=== PATIENT | male | born 1970 | race Caucasian/White ===

== ENCOUNTER 2018-07-19 09:42 | Inpatient (IN) | payer MEDICAID, MEDICARE ==
[~2018-07-19] VITALS: Ht 172.7 cm; Wt 107.5 kg
[2018-07-19] MEDS ORDERED: SODIUM CHLORIDE 0.9% 1,000 ML IV ONE (09:46)
[2018-07-19] MEDS ORDERED: NALOXONE HCL 1 MG/ML 2ML VIAL IV STA (09:46)
[2018-07-19] MEDS ORDERED: NALOXONE HCL 1 MG/ML 2ML VIAL ONE (09:56)
[2018-07-19] MEDS ORDERED: DEXTROSE 50% WATER 50ML SYRINGE IV ONE ×2 (09:57→10:00)
[2018-07-19 10:08] LABS: HEMATOCRIT. 27.3 % (42.0-52.0); HEMOGLOBIN. 9.2 g/dL (14.0-18.0); MEAN CORPUSCULAR HEMOGLOBIN 29.7 pg (28.0-32.0); MEAN CORPUSCULAR VOLUME 88.1 fL (80.0-94.0); MEAN PLATELET VOLUME 8.3 fl (7.4-10.4); PLATELET 283 x1000/uL (130-400); RED CELL DISTRIBUTION WIDTH 16.2 % (11.6-14.6)
[2018-07-19 10:14] LABS: PROTHROMBIN TIME 10.5 sec (9.1-11.1)
[2018-07-19 10:15] LABS: CHLORIDE 113 mEq/L (98-107)
[2018-07-19 10:22] LABS: ETHANOL BLOOD < 10 mg/dL
[2018-07-19 11:18] LABS: PLATELET ESTIMATE NORMAL
[2018-07-19] MEDS ORDERED: CEFTRIAXONE 1 G PREMIX 50 ML IV ONE (12:30)
[2018-07-19] MEDS ORDERED: AZITHROMYCIN 500 MG in DEXT 5% WATER 250 ML IV SCH (12:30)
[2018-07-19 13:05] LABS: CLARITY URINE CLEAR (CLEAR); COLOR URINE YELLOW (YELLOW); KETONES URINE NEGATIVE (NEGATIVE); LEUKOCYTE ESTERASE URINE NEGATIVE (NEGATIVE); NITRITE URINE NEGATIVE (NEGATIVE); OCCULT BLOOD URINE TRACE (NEGATIVE); PH URINE 6.5 (4.5-8.0); PROTEIN URINE 3+ (NEGATIVE); UROBILINOGEN URINE 0.2 E.U./dL (0.2-1.0)
[2018-07-19 13:20] LABS: *AMPHETAMINES SCREEN URINE PRESUMTIVE POSITIVE (NEGATIVE)
[2018-07-19 13:23] LABS: *BARBITURATES SCREEN URINE NEGATIVE (NEGATIVE); *BENZODIAZEPINES SCREEN URINE PRESUMTIVE POSITIVE (NEGATIVE); *COCAINE SCREEN URINE NEGATIVE (NEGATIVE); CANNABINOID URINE SCREEN NEGATIVE (NEGATIVE); METHADONE URINE SCREEN NEGATIVE (NEGATIVE); OPIATES URINE SCREEN NEGATIVE (NEGATIVE); PHENCYCLIDINE URINE SCREEN NEGATIVE (NEGATIVE)
[2018-07-19 13:32] LABS: BG BASE EXCESS -4.8 mmol/L (-2.0-2.0); BG CARBOXYHEMOGLOBIN 0.3 % (0.5-1.5); BG DEOXYHEMOGLOBIN 0.7 % (0.0-5.0); BG FRACTION INSPIRED OXYGEN 100; BG HCO3 ACT 20.1 mmol/L (22.0-26.0); BG METHEMOGLOBIN 0.2 % (0.0-1.5); BG OXYGEN SATURATION 99.3 % (92.0-98.5); BG OXYHEMOGLOBIN 98.8 % (94.0-97.0); BG PCO2 36.6 mmHg (35.0-45.0); BG PEEP (cmH2O) 0 cmH2O; BG PH 7.358 (7.350-7.450); BG PO2 384.8 mmHg (75.0-100.0); BG SAMPLE SITE RIGHT RADIAL; BG TIDAL VOLUME(mL) 600 mL; BG TOTAL HEMOGLOBIN 10.6 g/dL (12.0-18.0); BG VENT MODE VENT - A/C; BG VENT RATE 16 set
[2018-07-19] MEDS: PROPOFOL 10MG/ML 100ML 100 ML IV SCH ×2 (13:50→16:48)
[2018-07-19] MEDS ORDERED: SUCCINYLCHOLINE CHLORIDE 200MG/10ML IV ONE (13:55)
[2018-07-19] MEDS ORDERED: IPRATROPIUM/ALBUTEROL 0.5-3(2.5)MG/3ML NEB HHN PRN (14:30)
[2018-07-19] MEDS ORDERED: PIPERACILLIN/TAZ 3.375G PREMIX 50 ML IV SCH (14:30)
[2018-07-19] MEDS ORDERED: ONDANSETRON HCL 4MG/2ML INJ IV PRN ×2 (15:15)
[2018-07-19] MEDS ORDERED: IPRATROPIUM/ALBUTEROL 0.5-3(2.5)MG/3ML NEB INH SCH (15:15)
[2018-07-19] MEDS ORDERED: HYDROCODONE/ACETAMINOPHEN 5/325MG TABLET PO PRN (15:15)
[2018-07-19] MEDS ORDERED: NA PHOS,M-B/NA PHOS,DI-BA ENEMA 118ML PR PRN (15:15)
[2018-07-19] MEDS ORDERED: IPRATROPIUM/ALBUTEROL 0.5-3(2.5)MG/3ML NEB INH PRN (15:15)
[2018-07-19] MEDS ORDERED: FAMOTIDINE 20MG/2ML VIAL IV SCH (15:15)
[2018-07-19] MEDS ORDERED: CEFEPIME 1,000 MG in DEXTROSE 5% WATER 50 ML IV SCH (15:15)
[2018-07-19 16:08] VITALS: BP 170/92
[2018-07-19] MEDS: SODIUM CHLORIDE 0.45% 1,000 ML IV SCH (16:46)
[2018-07-19] MEDS: IPRATROPIUM/ALBUTEROL 0.5-3(2.5)MG/3ML NEB HHN SCH (17:04)
[2018-07-19] MEDS ORDERED: MVI, ADULT NO.1 10 ML, FOLIC ACID 1 MG, THIAMINE HCL 100 MG in SODIUM CHLORIDE 0.9% 1,0... IV SCH ×4 (18:00)
[2018-07-19] MEDS: PIPERACILLIN/TAZ 3.375G PREMIX 50 ML IV SCH (18:54)
[2018-07-19 19:00] VITALS: BP 153/86
[2018-07-19 20:00] VITALS: BP 147/79
[2018-07-19] MEDS ORDERED: VANCOMYCIN 2,000 MG in DEXT 5% WATER 500 ML IV SCH (20:00)
[2018-07-19 21:00] VITALS: BP 143/78
[2018-07-19] MEDS: FUROSEMIDE 40MG/4ML VIAL IV SCH (21:06)
[2018-07-19] MEDS: ENOXAPARIN 30MG/0.3ML SYR SUBCUT SCH (21:07)
[2018-07-19 22:00] VITALS: BP 144/80
[2018-07-19 22:02] LABS: VITAMIN B12 SERUM 451 pg/mL (211-911)
[2018-07-19] MEDS: SODIUM CHLORIDE 0.9% INJ 3ML FLUSH IVF SCH (22:50)
[2018-07-19 23:00] VITALS: BP 145/83
[2018-07-19] MEDS: PROPOFOL 10MG/ML 100ML 100 ML IV PRN (23:01)
[2018-07-19 23:47] LABS: CREATINE KINASE 113 IU/L (39-308); CREATINE KINASE MB FRACTION 5.6 ng/mL (0.5-3.6)
[2018-07-20] VITALS (81 sets, daily range): BP systolic 125–188; BP diastolic 43–104
[2018-07-20] MEDS: PIPERACILLIN/TAZ 3.375G PREMIX 50 ML IV SCH ×5 (00:30→23:39)
[2018-07-20] MEDS: IPRATROPIUM/ALBUTEROL 0.5-3(2.5)MG/3ML NEB HHN SCH ×6 (00:44→20:27)
[2018-07-20] MEDS: PROPOFOL 10MG/ML 100ML 100 ML IV PRN ×4 (04:53→23:39)
[2018-07-20] MEDS: SODIUM CHLORIDE 0.45% 1,000 ML IV SCH ×2 (04:54→21:56)
[2018-07-20] MEDS: SODIUM CHLORIDE 0.9% INJ 3ML FLUSH IVF SCH ×3 (06:00→21:57)
[2018-07-20 06:27] LABS: HEMATOCRIT. 29.9 % (42.0-52.0); HEMOGLOBIN. 9.8 g/dL (14.0-18.0); MEAN CORPUSCULAR VOLUME 91.9 fL (80.0-94.0); MEAN PLATELET VOLUME 9.2 fl (7.4-10.4); PLATELET 230 x1000/uL (130-400); RED BLOOD CELL COUNT 3.25 mill/uL (4.7-6.1); RED CELL DISTRIBUTION WIDTH 16.2 % (11.6-14.6)
[2018-07-20 06:53] LABS: CHLORIDE 112 mEq/L (98-107)
[2018-07-20 07:13] LABS: CREATINE KINASE 123 IU/L (39-308); CREATINE KINASE MB FRACTION 3.7 ng/mL (0.5-3.6); HDL CHOLESTEROL 72 mg/dL (40-59); LDL CHOLESTEROL 54 mg/dL (5-100)
[2018-07-20 07:54] LABS: PLATELET ESTIMATE NORMAL
[2018-07-20 08:02] LABS: BG BASE EXCESS -4.5 mmol/L (-2.0-2.0); BG CARBOXYHEMOGLOBIN 0.3 % (0.5-1.5); BG DEOXYHEMOGLOBIN 6.6 % (0.0-5.0); BG FRACTION INSPIRED OXYGEN 40; BG HCO3 ACT 20.3 mmol/L (22.0-26.0); BG METHEMOGLOBIN 0.4 % (0.0-1.5); BG OXYGEN SATURATION 93.4 % (92.0-98.5); BG OXYHEMOGLOBIN 92.7 % (94.0-97.0); BG PCO2 35.9 mmHg (35.0-45.0); BG PO2 67.5 mmHg (75.0-100.0); BG SAMPLE SITE RIGHT RADIAL; BG TIDAL VOLUME(mL) 600 mL; BG TOTAL HEMOGLOBIN 9.8 g/dL (12.0-18.0); BG VENT MODE VENT - A/C; BG VENT RATE 16 set
[2018-07-20] MEDS: FUROSEMIDE 40MG/4ML VIAL IV SCH (09:35)
[2018-07-20] MEDS: POTASSIUM CHLORIDE 20MEQ TABLET SR PO PRN (09:35)
[2018-07-20] MEDS: ENOXAPARIN 30MG/0.3ML SYR SUBCUT SCH ×2 (09:36→21:57)
[2018-07-20] MEDS: PANTOPRAZOLE SODIUM 40 MG/VIAL IV SCH (10:53)
[2018-07-20] MEDS ORDERED: VANCOMYCIN 1500MG in DEXTROSE 5% WATER 250ML IV SCH (12:00)
[2018-07-21] VITALS (79 sets, daily range): BP systolic 136–181; BP diastolic 60–103
[2018-07-21] MEDS: ACETAMINOPHEN 325MG TABLET PO PRN (00:05)
[2018-07-21] MEDS: IPRATROPIUM/ALBUTEROL 0.5-3(2.5)MG/3ML NEB HHN SCH ×5 (00:20→20:24)
[2018-07-21] MEDS: PROPOFOL 10MG/ML 100ML 100 ML IV PRN ×2 (05:32→11:08)
[2018-07-21] MEDS: SODIUM CHLORIDE 0.9% INJ 3ML FLUSH IVF SCH ×3 (05:32→21:49)
[2018-07-21] MEDS: PIPERACILLIN/TAZ 3.375G PREMIX 50 ML IV SCH ×3 (05:32→18:00)
[2018-07-21] MEDS: CLONIDINE 0.1MG TABLET PO PRN (06:14)
[2018-07-21] MEDS: FUROSEMIDE 40MG/4ML VIAL IV SCH (10:51)
[2018-07-21] MEDS: PANTOPRAZOLE SODIUM 40 MG/VIAL IV SCH (10:51)
[2018-07-21] MEDS: ENOXAPARIN 30MG/0.3ML SYR SUBCUT SCH ×2 (10:52→21:49)
[2018-07-21] MEDS: MORPHINE SULFATE 4 MG/ML CPJ (NOT FOR IM USE) IV PRN (10:54)
[2018-07-21 13:07] LABS: BASOPHILS % 0.8 % (0.0-2.0); EOSINOPHILS % 4.4 % (0.0-5.0); HEMATOCRIT. 23.8 % (42.0-52.0); HEMOGLOBIN. 8.1 g/dL (14.0-18.0); LYMPHOCYTES % 12.5 % (20.0-50.0); MEAN CORPUSCULAR HEMOGLOBIN 30.2 pg (28.0-32.0); MEAN CORPUSCULAR VOLUME 88.8 fL (80.0-94.0); MEAN PLATELET VOLUME 8.7 fl (7.4-10.4); NEUTROPHILS % 76.3 % (40.0-76.0); PLATELET 255 x1000/uL (130-400); RED BLOOD CELL COUNT 2.68 mill/uL (4.7-6.1); RED CELL DISTRIBUTION WIDTH 16.2 % (11.6-14.6)
[2018-07-21 13:26] LABS: CHLORIDE 110 mEq/L (98-107)
[2018-07-21] MEDS ORDERED: VANCOMYCIN 1500MG in DEXTROSE 5% WATER 250ML IV SCH (14:00)
[2018-07-21] MEDS: SODIUM CHLORIDE 0.45% 1,000 ML IV SCH (15:43)
[2018-07-21] MEDS: PROPOFOL 10MG/ML 100ML 100 ML IV SCH (22:55)
[2018-07-22] VITALS (65 sets, daily range): BP systolic 125–188; BP diastolic 66–104
[2018-07-22] MEDS: IPRATROPIUM/ALBUTEROL 0.5-3(2.5)MG/3ML NEB HHN SCH ×6 (00:12→20:02)
[2018-07-22] MEDS: PIPERACILLIN/TAZ 3.375G PREMIX 50 ML IV SCH ×4 (00:23→17:27)
[2018-07-22] MEDS: PROPOFOL 10MG/ML 100ML 100 ML IV SCH ×3 (02:14→10:42)
[2018-07-22] MEDS: SODIUM CHLORIDE 0.9% INJ 3ML FLUSH IVF SCH ×3 (05:56→21:05)
[2018-07-22] MEDS: MORPHINE SULFATE 4 MG/ML CPJ (NOT FOR IM USE) IV PRN ×2 (07:07→20:22)
[2018-07-22] MEDS: FAMOTIDINE 20MG/2ML VIAL IV SCH ×2 (08:38→20:45)
[2018-07-22] MEDS: FUROSEMIDE 40MG/4ML VIAL IV SCH (08:38)
[2018-07-22] MEDS: CLONIDINE 0.1MG TABLET PO PRN ×2 (08:39→17:48)
[2018-07-22] MEDS: ENOXAPARIN 30MG/0.3ML SYR SUBCUT SCH ×2 (09:00→20:45)
[2018-07-22 10:06] LABS: BASOPHILS % 0.4 % (0.0-2.0); EOSINOPHILS % 7.1 % (0.0-5.0); HEMATOCRIT. 26.1 % (42.0-52.0); HEMOGLOBIN. 8.8 g/dL (14.0-18.0); LYMPHOCYTES % 14.7 % (20.0-50.0); MEAN CORPUSCULAR VOLUME 88.5 fL (80.0-94.0); MEAN PLATELET VOLUME 8.6 fl (7.4-10.4); MONOCYTES % 7.3 % (2.0-8.0); NEUTROPHILS % 70.5 % (40.0-76.0); PLATELET 263 x1000/uL (130-400); RED BLOOD CELL COUNT 2.95 mill/uL (4.7-6.1); RED CELL DISTRIBUTION WIDTH 16.2 % (11.6-14.6)
[2018-07-22] MEDS: SODIUM CHLORIDE 0.45% 1,000 ML IV SCH (11:42)
[2018-07-22] MEDS ORDERED: SODIUM CHLORIDE 0.9% 500 ML IV SCH (13:45)
[2018-07-22 13:59] LABS: BG BASE EXCESS -0.5 mmol/L (-2.0-2.0); BG CARBOXYHEMOGLOBIN 0.3 % (0.5-1.5); BG DEOXYHEMOGLOBIN 3.2 % (0.0-5.0); BG FRACTION INSPIRED OXYGEN 40; BG HCO3 ACT 23.9 mmol/L (22.0-26.0); BG METHEMOGLOBIN 0.2 % (0.0-1.5); BG OXYGEN SATURATION 96.8 % (92.0-98.5); BG OXYHEMOGLOBIN 96.3 % (94.0-97.0); BG PCO2 38.2 mmHg (35.0-45.0); BG PH 7.415 (7.350-7.450); BG PO2 96.1 mmHg (75.0-100.0); BG SAMPLE SITE RIGHT RADIAL; BG TIDAL VOLUME(mL) 600 mL; BG TOTAL HEMOGLOBIN 8.9 g/dL (12.0-18.0); BG VENT MODE VENT - A/C; BG VENT RATE 16 set
[2018-07-22] MEDS: FENTANYL CITRATE/PF 500 MCG in SODIUM CHLORIDE 0.9% 40 ML IV PRN ×2 (14:09→19:51)
[2018-07-22] MEDS ORDERED: AMLODIPINE 10MG TABLET PO NR (16:00)
[2018-07-22] MEDS ORDERED: DEXTROSE 50% WATER 50ML SYRINGE IV PRN (16:00)
[2018-07-22] MEDS: BLOOD SUGAR DIAGNOSTIC STRIP TEST SCH ×2 (17:03→20:46)
[2018-07-22] MEDS: INSULIN LISPRO 100 UNITS/ML SUBCUT SCH ×2 (17:10→20:46)
[2018-07-22] MEDS ORDERED: MIDAZOLAM HCL 50 MG in DEXTROSE 5% WATER 40 ML IV PRN (20:30)
[2018-07-22] MEDS: OLANZAPINE 5MG TABLET PO SCH (21:58)
[2018-07-23] VITALS (57 sets, daily range): BP systolic 143–199; BP diastolic 65–108
[2018-07-23] MEDS: IPRATROPIUM/ALBUTEROL 0.5-3(2.5)MG/3ML NEB HHN SCH ×6 (00:39→20:26)
[2018-07-23] MEDS: FENTANYL CITRATE/PF 500 MCG in SODIUM CHLORIDE 0.9% 40 ML IV PRN ×2 (01:04→07:49)
[2018-07-23] MEDS: PIPERACILLIN/TAZ 3.375G PREMIX 50 ML IV SCH ×5 (01:04→23:43)
[2018-07-23] MEDS: CLONIDINE 0.1MG TABLET PO PRN ×2 (03:14→09:16)
[2018-07-23] MEDS: ACETAMINOPHEN 650MG/20.3ML UDC GT PRN (04:15)
[2018-07-23] MEDS: SODIUM CHLORIDE 0.9% INJ 3ML FLUSH IVF SCH ×3 (05:15→21:53)
[2018-07-23] MEDS: BLOOD SUGAR DIAGNOSTIC STRIP TEST SCH ×4 (05:38→21:52)
[2018-07-23] MEDS: INSULIN LISPRO 100 UNITS/ML SUBCUT SCH ×4 (06:18→21:49)
[2018-07-23] MEDS: FUROSEMIDE 40MG/4ML VIAL IV SCH (08:58)
[2018-07-23] MEDS: FAMOTIDINE 20MG/2ML VIAL IV SCH ×2 (08:59→21:44)
[2018-07-23] MEDS: AMLODIPINE 10MG TABLET PO SCH (09:00)
[2018-07-23] MEDS: DOCUSATE SODIUM 100MG CAPSULE PO PRN (09:00)
[2018-07-23] MEDS: ENOXAPARIN 30MG/0.3ML SYR SUBCUT SCH ×2 (09:00→21:45)
[2018-07-23] MEDS: OLANZAPINE 5MG TABLET PO SCH (09:01)
[2018-07-23] MEDS: VANCOMYCIN 1250MG in DEXTROSE 5% WATER 250ML IV SCH (11:00)
[2018-07-23 11:42] LABS: BG BASE EXCESS 1.5 mmol/L (-2.0-2.0); BG CARBOXYHEMOGLOBIN 0.1 % (0.5-1.5); BG DEOXYHEMOGLOBIN 3.5 % (0.0-5.0); BG FRACTION INSPIRED OXYGEN 40; BG HCO3 ACT 25.9 mmol/L (22.0-26.0); BG METHEMOGLOBIN 0.4 % (0.0-1.5); BG OXYGEN SATURATION 96.5 % (92.0-98.5); BG PCO2 40.2 mmHg (35.0-45.0); BG PH 7.427 (7.350-7.450); BG PO2 90.8 mmHg (75.0-100.0); BG PRESSURE SUPPORT 10; BG SAMPLE SITE RIGHT BRACHIAL; BG TOTAL HEMOGLOBIN 9.3 g/dL (12.0-18.0); BG VENT MODE VENT - CPAP
[2018-07-23] MEDS ORDERED: BENAZEPRIL 10MG TABLET PO SCH (14:45)
[2018-07-23 16:19] LABS: CHLORIDE 110 mEq/L (98-107)
[2018-07-23 16:24] LABS: BASOPHILS % 0.6 % (0.0-2.0); EOSINOPHILS % 9.3 % (0.0-5.0); HEMATOCRIT. 28.1 % (42.0-52.0); HEMOGLOBIN. 9.5 g/dL (14.0-18.0); LYMPHOCYTES % 11.6 % (20.0-50.0); MEAN CORPUSCULAR HEMOGLOBIN 29.8 pg (28.0-32.0); MEAN CORPUSCULAR VOLUME 88.3 fL (80.0-94.0); MEAN PLATELET VOLUME 8.5 fl (7.4-10.4); MONOCYTES % 8.1 % (2.0-8.0); NEUTROPHILS % 70.4 % (40.0-76.0); PLATELET 266 x1000/uL (130-400); RED BLOOD CELL COUNT 3.18 mill/uL (4.7-6.1)
[2018-07-23] MEDS: RISPERIDONE 0.5MG TABLET PO SCH (16:30)
[2018-07-23] MEDS: LORAZEPAM 2MG/ML CPJ IV PRN (16:31)
[2018-07-23] MEDS: HALOPERIDOL LACTATE 5MG/ML VIAL IM PRN (18:17)
[2018-07-23] MEDS ORDERED: ASPI-1158 PO (20:17)
[2018-07-23] MEDS ORDERED: CARV6.2548 PO (20:17)
[2018-07-23] MEDS ORDERED: EPOE200014 IJ (20:17)
[2018-07-23] MEDS ORDERED: CHOL100062 PO (20:17)
[2018-07-23] MEDS ORDERED: MINO2.5T2 PO (20:20)
[2018-07-23] MEDS ORDERED: NIFE30TA83 PO (20:22)
[2018-07-23] MEDS ORDERED: PANT40TA4 PO (20:23)
[2018-07-23] MEDS ORDERED: REN800 PO (20:24)
[2018-07-23] MEDS ORDERED: LISI40TA4 PO (20:25)
[2018-07-23] MEDS ORDERED: ACET-2178 PO (20:28)
[2018-07-23] MEDS ORDERED: DIPH50CA4 PO (20:29)
[2018-07-23] MEDS ORDERED: ACET-2708 PO (20:32)
[2018-07-23] MEDS ORDERED: OXYC30TA89 PO (20:34)
[2018-07-23] MEDS ORDERED: HYDR-4001 PO (20:37)
[2018-07-23] MEDS ORDERED: OLAN5TAB26 PO (20:40)
[2018-07-23] MEDS ORDERED: DIAZ10TA4 PO (20:41)
[2018-07-23] MEDS: ACETAMINOPHEN 325MG TABLET PO PRN (21:51)
[2018-07-24] VITALS (46 sets, daily range): BP systolic 149–189; BP diastolic 58–104
[2018-07-24] MEDS: IPRATROPIUM/ALBUTEROL 0.5-3(2.5)MG/3ML NEB HHN SCH ×6 (00:09→20:30)
[2018-07-24] MEDS: CLONIDINE 0.1MG TABLET PO PRN ×3 (01:21→18:08)
[2018-07-24] MEDS: ACETAMINOPHEN 650MG/20.3ML UDC GT PRN (01:22)
[2018-07-24] MEDS: LORAZEPAM 2MG/ML CPJ IV PRN ×3 (05:20→23:44)
[2018-07-24] MEDS: INSULIN LISPRO 100 UNITS/ML SUBCUT SCH ×4 (05:20→20:58)
[2018-07-24] MEDS: PIPERACILLIN/TAZ 3.375G PREMIX 50 ML IV SCH ×3 (05:20→18:08)
[2018-07-24] MEDS: SODIUM CHLORIDE 0.9% INJ 3ML FLUSH IVF SCH ×3 (05:21→20:57)
[2018-07-24] MEDS: BLOOD SUGAR DIAGNOSTIC STRIP TEST SCH ×4 (05:21→20:57)
[2018-07-24 06:02] LABS: BASOPHILS % 0.6 % (0.0-2.0); EOSINOPHILS % 8.2 % (0.0-5.0); HEMOGLOBIN. 9.3 g/dL (14.0-18.0); LYMPHOCYTES % 14.2 % (20.0-50.0); MEAN CORPUSCULAR HEMOGLOBIN 29.4 pg (28.0-32.0); MEAN CORPUSCULAR VOLUME 88.8 fL (80.0-94.0); MEAN PLATELET VOLUME 8.8 fl (7.4-10.4); MONOCYTES % 9.4 % (2.0-8.0); NEUTROPHILS % 67.6 % (40.0-76.0); PLATELET 251 x1000/uL (130-400); RED BLOOD CELL COUNT 3.16 mill/uL (4.7-6.1)
[2018-07-24] MEDS: HALOPERIDOL LACTATE 5MG/ML VIAL IM PRN ×2 (08:05→16:42)
[2018-07-24] MEDS: FAMOTIDINE 20MG/2ML VIAL IV SCH ×2 (08:05→20:56)
[2018-07-24] MEDS: FUROSEMIDE 40MG/4ML VIAL IV SCH (08:06)
[2018-07-24] MEDS: RISPERIDONE 0.5MG TABLET PO SCH ×2 (08:06→16:49)
[2018-07-24] MEDS: BENAZEPRIL 10MG TABLET PO SCH (08:07)
[2018-07-24] MEDS: AMLODIPINE 10MG TABLET PO SCH (08:08)
[2018-07-24] MEDS: OLANZAPINE 5MG TABLET PO SCH (08:09)
[2018-07-24] MEDS: VANCOMYCIN 1250MG in DEXTROSE 5% WATER 250ML IV SCH (08:11)
[2018-07-24] MEDS ORDERED: HYDROCODONE/ACETAMINOPHEN 10/325MG TABLET PO PRN (16:30)
[2018-07-24] MEDS: DOCUSATE SODIUM 100MG CAPSULE PO PRN (16:42)
[2018-07-24] MEDS: ACETAMINOPHEN 325MG TABLET PO PRN (16:51)
[2018-07-25] VITALS: BP 143/54
[2018-07-25] MEDS: IPRATROPIUM/ALBUTEROL 0.5-3(2.5)MG/3ML NEB HHN SCH ×6 (00:49→20:28)
[2018-07-25] MEDS: PIPERACILLIN/TAZ 3.375G PREMIX 50 ML IV SCH ×5 (01:24→23:20)
[2018-07-25 04:00] VITALS: BP 136/52
[2018-07-25] MEDS: SODIUM CHLORIDE 0.9% INJ 3ML FLUSH IVF SCH ×3 (06:06→21:03)
[2018-07-25] MEDS: INSULIN LISPRO 100 UNITS/ML SUBCUT SCH ×4 (06:42→21:01)
[2018-07-25] MEDS: BLOOD SUGAR DIAGNOSTIC STRIP TEST SCH ×4 (06:42→21:02)
[2018-07-25 08:00] VITALS: BP 145/76
[2018-07-25] MEDS: BENAZEPRIL 10MG TABLET PO SCH (08:53)
[2018-07-25] MEDS: RISPERIDONE 0.5MG TABLET PO SCH (08:53)
[2018-07-25] MEDS: FAMOTIDINE 20MG/2ML VIAL IV SCH ×2 (08:53→21:01)
[2018-07-25] MEDS: AMLODIPINE 10MG TABLET PO SCH (08:54)
[2018-07-25] MEDS: FUROSEMIDE 40MG/4ML VIAL IV SCH (08:55)
[2018-07-25] MEDS: LORAZEPAM 2MG/ML CPJ IV PRN ×2 (08:55→17:52)
[2018-07-25] MEDS: HALOPERIDOL LACTATE 5MG/ML VIAL IM PRN ×2 (10:26→21:02)
[2018-07-25] MEDS ORDERED: OLANZAPINE 5MG TABLET PO SCH (10:30)
[2018-07-25 12:16] VITALS: BP 152/73
[2018-07-25] MEDS ORDERED: THIAMINE HCL 100 MG in SODIUM CHLORIDE 0.9% 50 ML IV SCH (15:00)
[2018-07-25 16:00] VITALS: BP 156/79
[2018-07-25 16:43] LABS: VITAMIN B12 SERUM 525 pg/mL (211-911)
[2018-07-25 20:00] VITALS: BP 174/89
[2018-07-25] MEDS: CLONIDINE 0.1MG TABLET PO PRN (21:01)
[2018-07-26] VITALS (7 sets, daily range): BP systolic 147–181; BP diastolic 71–90
[2018-07-26] MEDS: IPRATROPIUM/ALBUTEROL 0.5-3(2.5)MG/3ML NEB HHN SCH ×6 (00:19→21:15)
[2018-07-26] MEDS: LORAZEPAM 2MG/ML CPJ IV PRN (06:12)
[2018-07-26] MEDS: INSULIN LISPRO 100 UNITS/ML SUBCUT SCH ×4 (06:25→22:03)
[2018-07-26] MEDS: BLOOD SUGAR DIAGNOSTIC STRIP TEST SCH ×4 (06:27→21:00)
[2018-07-26] MEDS: PIPERACILLIN/TAZ 3.375G PREMIX 50 ML IV SCH ×3 (06:28→18:14)
[2018-07-26] MEDS: SODIUM CHLORIDE 0.9% INJ 3ML FLUSH IVF SCH ×3 (06:28→22:00)
[2018-07-26] MEDS: POTASSIUM CHLORIDE 20MEQ TABLET SR PO PRN (10:02)
[2018-07-26] MEDS: FAMOTIDINE 20MG/2ML VIAL IV SCH ×2 (10:02→21:42)
[2018-07-26] MEDS: AMLODIPINE 10MG TABLET PO SCH (10:02)
[2018-07-26] MEDS: BENAZEPRIL 10MG TABLET PO SCH (10:03)
[2018-07-26] MEDS: OLANZAPINE 10MG TABLET PO SCH (10:03)
[2018-07-26] MEDS: FUROSEMIDE 40MG/4ML VIAL IV SCH (10:03)
[2018-07-26] MEDS: ACETAMINOPHEN 650MG SUPP PR PRN ×2 (11:56→18:17)
[2018-07-26] MEDS: CLONIDINE 0.1MG TABLET PO PRN (11:56)
[2018-07-26 13:19] LABS: BG BASE EXCESS 2.8 mmol/L (-2.0-2.0); BG CARBOXYHEMOGLOBIN 0.3 % (0.5-1.5); BG DEOXYHEMOGLOBIN 3.5 % (0.0-5.0); BG FRACTION INSPIRED OXYGEN 32; BG HCO3 ACT 27.1 mmol/L (22.0-26.0); BG METHEMOGLOBIN 0.4 % (0.0-1.5); BG OXYGEN SATURATION 96.5 % (92.0-98.5); BG OXYHEMOGLOBIN 95.8 % (94.0-97.0); BG PCO2 40.6 mmHg (35.0-45.0); BG PH 7.443 (7.350-7.450); BG PO2 90.9 mmHg (75.0-100.0); BG SAMPLE SITE RIGHT RADIAL; BG TOTAL HEMOGLOBIN 11.9 g/dL (12.0-18.0); BG VENT MODE NASAL CANNULA
[2018-07-26] MEDS: HALOPERIDOL LACTATE 5MG/ML VIAL IM PRN (21:42)
[2018-07-26] MEDS: ACETAMINOPHEN 325MG TABLET PO PRN (21:43)
[2018-07-27] VITALS (7 sets, daily range): BP systolic 147–179; BP diastolic 72–89
[2018-07-27] MEDS: IPRATROPIUM/ALBUTEROL 0.5-3(2.5)MG/3ML NEB HHN SCH ×7 (01:04→23:59)
[2018-07-27] MEDS: HALOPERIDOL LACTATE 5MG/ML VIAL IM PRN (03:45)
[2018-07-27] MEDS: CLONIDINE 0.1MG TABLET PO PRN ×2 (04:58→12:35)
[2018-07-27] MEDS: ACETAMINOPHEN 325MG TABLET PO PRN (04:58)
[2018-07-27] MEDS: LORAZEPAM 2MG/ML CPJ IV PRN (05:50)
[2018-07-27] MEDS: BLOOD SUGAR DIAGNOSTIC STRIP TEST SCH ×4 (06:02→21:52)
[2018-07-27] MEDS: SODIUM CHLORIDE 0.9% INJ 3ML FLUSH IVF SCH ×3 (06:18→21:52)
[2018-07-27] MEDS: INSULIN LISPRO 100 UNITS/ML SUBCUT SCH ×4 (06:25→22:21)
[2018-07-27 08:16] LABS: HIV SCREEN 4G Non Reactive (Non Reactive)
[2018-07-27] MEDS: FUROSEMIDE 40MG/4ML VIAL IV SCH (09:08)
[2018-07-27] MEDS: AMLODIPINE 10MG TABLET PO SCH (09:09)
[2018-07-27] MEDS: OLANZAPINE 10MG TABLET PO SCH (09:09)
[2018-07-27] MEDS: BENAZEPRIL 10MG TABLET PO SCH (09:09)
[2018-07-27] MEDS: FAMOTIDINE 20MG/2ML VIAL IV SCH ×2 (09:09→21:52)
[2018-07-28] VITALS: BP 153/82
[2018-07-28] MEDS: IPRATROPIUM/ALBUTEROL 0.5-3(2.5)MG/3ML NEB HHN SCH ×6 (00:56→23:59)
[2018-07-28] MEDS: HALOPERIDOL LACTATE 5MG/ML VIAL IM PRN ×2 (01:38→14:02)
[2018-07-28 04:00] VITALS: BP 173/81
[2018-07-28] MEDS: BLOOD SUGAR DIAGNOSTIC STRIP TEST SCH ×4 (07:00→21:34)
[2018-07-28] MEDS: SODIUM CHLORIDE 0.9% INJ 3ML FLUSH IVF SCH ×3 (07:00→21:34)
[2018-07-28] MEDS: INSULIN LISPRO 100 UNITS/ML SUBCUT SCH ×4 (07:04→21:36)
[2018-07-28] MEDS: BENAZEPRIL 10MG TABLET PO SCH (08:52)
[2018-07-28] MEDS: FUROSEMIDE 40MG/4ML VIAL IV SCH (08:52)
[2018-07-28] MEDS: OLANZAPINE 10MG TABLET PO SCH (08:52)
[2018-07-28] MEDS: AMLODIPINE 10MG TABLET PO SCH (08:52)
[2018-07-28] MEDS: FAMOTIDINE 20MG/2ML VIAL IV SCH ×2 (08:52→21:34)
[2018-07-28 11:04] VITALS: BP 181/90
[2018-07-28 12:11] VITALS: BP 155/81
[2018-07-28 16:00] VITALS: BP 145/54
[2018-07-28] MEDS: GLIPIZIDE 5MG XL TABLET PO SCH (17:07)
[2018-07-28 20:00] VITALS: BP 166/80
[2018-07-29] VITALS: BP 150/85
[2018-07-29] MEDS: IPRATROPIUM/ALBUTEROL 0.5-3(2.5)MG/3ML NEB HHN SCH ×5 (00:34→21:40)
[2018-07-29 04:00] VITALS: BP 182/89
[2018-07-29] MEDS: CLONIDINE 0.1MG TABLET PO PRN (04:19)
[2018-07-29] MEDS: GLIPIZIDE 5MG XL TABLET PO SCH (06:46)
[2018-07-29] MEDS: SODIUM CHLORIDE 0.9% INJ 3ML FLUSH IVF SCH ×2 (06:46→22:49)
[2018-07-29] MEDS: BLOOD SUGAR DIAGNOSTIC STRIP TEST SCH ×3 (06:46→22:49)
[2018-07-29] MEDS: INSULIN LISPRO 100 UNITS/ML SUBCUT SCH ×3 (06:48→22:57)
[2018-07-29 08:00] VITALS: BP 144/75
[2018-07-29] MEDS: FUROSEMIDE 40MG/4ML VIAL IV SCH (09:40)
[2018-07-29] MEDS: FAMOTIDINE 20MG/2ML VIAL IV SCH ×2 (09:41→22:49)
[2018-07-29] MEDS: BENAZEPRIL 10MG TABLET PO SCH (09:41)
[2018-07-29] MEDS: AMLODIPINE 10MG TABLET PO SCH (09:42)
[2018-07-29] MEDS: DOCUSATE SODIUM 100MG CAPSULE PO PRN (09:42)
[2018-07-29] MEDS: OLANZAPINE 10MG TABLET PO SCH (09:42)
[2018-07-29] MEDS: HALOPERIDOL LACTATE 5MG/ML VIAL IM PRN (10:43)
[2018-07-29 12:00] VITALS: BP 167/83
[2018-07-29 16:00] VITALS: BP 157/81
[2018-07-29] MEDS ORDERED: INSULIN LISPRO 100 UNITS/ML SUBCUT NR (19:30)
[2018-07-29 20:00] VITALS: BP 167/90
[2018-07-30] VITALS: BP 155/90
[2018-07-30] MEDS: HALOPERIDOL LACTATE 5MG/ML VIAL IM PRN (01:19)
[2018-07-30 04:00] VITALS: BP 163/85
[2018-07-30] MEDS: IPRATROPIUM/ALBUTEROL 0.5-3(2.5)MG/3ML NEB HHN SCH ×2 (04:36→12:10)
[2018-07-30] MEDS ORDERED: LORAZEPAM 2MG/ML CPJ IV NR ×2 (05:00→22:00)
[2018-07-30] MEDS: SODIUM CHLORIDE 0.9% INJ 3ML FLUSH IVF SCH ×3 (07:03→21:13)
[2018-07-30] MEDS: GLIPIZIDE 5MG XL TABLET PO SCH ×2 (07:04→17:52)
[2018-07-30] MEDS: BLOOD SUGAR DIAGNOSTIC STRIP TEST SCH ×4 (07:04→20:46)
[2018-07-30] MEDS: INSULIN LISPRO 100 UNITS/ML SUBCUT SCH ×4 (07:05→20:57)
[2018-07-30 08:00] VITALS: BP 137/59
[2018-07-30] MEDS: FAMOTIDINE 20MG/2ML VIAL IV SCH ×2 (09:45→20:47)
[2018-07-30] MEDS: FUROSEMIDE 40MG/4ML VIAL IV SCH (09:45)
[2018-07-30] MEDS: OLANZAPINE 10MG TABLET PO SCH (09:45)
[2018-07-30] MEDS: AMLODIPINE 10MG TABLET PO SCH (09:45)
[2018-07-30] MEDS: BENAZEPRIL 10MG TABLET PO SCH (09:46)
[2018-07-30 12:00] VITALS: BP 149/90
[2018-07-30] MEDS: DIVALPROEX SODIUM 250MG DR TABLET PO SCH ×2 (14:15→20:47)
[2018-07-30 15:59] LABS: BASOPHILS % 1.4 % (0.0-2.0); EOSINOPHILS % 8.9 % (0.0-5.0); HEMATOCRIT. 33.8 % (42.0-52.0); HEMOGLOBIN. 11.3 g/dL (14.0-18.0); LYMPHOCYTES % 17.6 % (20.0-50.0); MEAN CORPUSCULAR HEMOGLOBIN 29.5 pg (28.0-32.0); MEAN CORPUSCULAR VOLUME 88.2 fL (80.0-94.0); MONOCYTES % 6.3 % (2.0-8.0); NEUTROPHILS % 65.8 % (40.0-76.0); PLATELET 317 x1000/uL (130-400); RED BLOOD CELL COUNT 3.83 mill/uL (4.7-6.1); RED CELL DISTRIBUTION WIDTH 14.9 % (11.6-14.6)
[2018-07-30 16:00] VITALS: BP 148/86
[2018-07-30 16:32] LABS: CHLORIDE 103 mEq/L (98-107)
[2018-07-30] MEDS ORDERED: GLIPIZIDE 5MG XL TABLET PO SCH (17:30)
[2018-07-30] MEDS: RISPERIDONE 0.5MG TABLET PO SCH (17:52)
[2018-07-30] MEDS ORDERED: INSULIN REGULAR (HUMULIN R) UD 100 UNITS/ML SYR SUBCUT NR (18:30)
[2018-07-30 20:00] VITALS: BP 151/96
[2018-07-31] VITALS: BP 139/64
[2018-07-31 04:00] VITALS: BP 141/65
[2018-07-31] MEDS: BLOOD SUGAR DIAGNOSTIC STRIP TEST SCH ×4 (06:08→21:06)
[2018-07-31] MEDS: INSULIN LISPRO 100 UNITS/ML SUBCUT SCH ×4 (06:09→21:05)
[2018-07-31] MEDS: SODIUM CHLORIDE 0.9% INJ 3ML FLUSH IVF SCH ×3 (06:09→21:06)
[2018-07-31] MEDS: GLIPIZIDE 5MG XL TABLET PO SCH ×2 (07:15→17:29)
[2018-07-31 08:00] VITALS: BP 150/82
[2018-07-31] MEDS: DIVALPROEX SODIUM 250MG DR TABLET PO SCH ×3 (09:00→21:52)
[2018-07-31] MEDS: FAMOTIDINE 20MG/2ML VIAL IV SCH ×3 (09:00→21:52)
[2018-07-31] MEDS: OLANZAPINE 10MG TABLET PO SCH (09:00)
[2018-07-31] MEDS: AMLODIPINE 10MG TABLET PO SCH (09:00)
[2018-07-31] MEDS: RISPERIDONE 0.5MG TABLET PO SCH ×2 (09:00→17:29)
[2018-07-31 12:00] VITALS: BP 131/75
[2018-07-31 12:08] LABS: BASOPHILS % 1.4 % (0.0-2.0); EOSINOPHILS % 9.8 % (0.0-5.0); HEMOGLOBIN. 11.2 g/dL (14.0-18.0); LYMPHOCYTES % 23.1 % (20.0-50.0); MEAN CORPUSCULAR HEMOGLOBIN 29.6 pg (28.0-32.0); MEAN CORPUSCULAR VOLUME 87.5 fL (80.0-94.0); MEAN PLATELET VOLUME 9.5 fl (7.4-10.4); MONOCYTES % 5.9 % (2.0-8.0); NEUTROPHILS % 59.8 % (40.0-76.0); PLATELET 382 x1000/uL (130-400); RED BLOOD CELL COUNT 3.78 mill/uL (4.7-6.1); RED CELL DISTRIBUTION WIDTH 15.2 % (11.6-14.6)
[2018-07-31 13:26] LABS: CHLORIDE 106 mEq/L (98-107)
[2018-07-31 16:00] VITALS: BP 142/83
[2018-07-31] MEDS: SODIUM CHLORIDE 0.9% 1,000 ML IV SCH (17:30)
[2018-07-31 20:00] VITALS: BP 174/79
[2018-07-31] MEDS: IPRATROPIUM/ALBUTEROL 0.5-3(2.5)MG/3ML NEB HHN SCH (20:00)
[2018-08-01] VITALS: BP 135/63
[2018-08-01] MEDS: IPRATROPIUM/ALBUTEROL 0.5-3(2.5)MG/3ML NEB HHN SCH ×6 (00:28→20:17)
[2018-08-01 04:00] VITALS: BP 115/67
[2018-08-01] MEDS: BLOOD SUGAR DIAGNOSTIC STRIP TEST SCH ×4 (05:55→20:36)
[2018-08-01] MEDS: SODIUM CHLORIDE 0.9% INJ 3ML FLUSH IVF SCH ×3 (05:55→20:36)
[2018-08-01] MEDS: SODIUM CHLORIDE 0.9% 1,000 ML IV SCH ×2 (05:55→16:15)
[2018-08-01] MEDS: INSULIN LISPRO 100 UNITS/ML SUBCUT SCH ×4 (05:57→20:31)
[2018-08-01 08:00] VITALS: BP 117/62
[2018-08-01] MEDS: DIVALPROEX SODIUM 250MG DR TABLET PO SCH ×2 (10:09→20:31)
[2018-08-01] MEDS: FAMOTIDINE 20MG/2ML VIAL IV SCH ×2 (10:09→21:00)
[2018-08-01] MEDS: RISPERIDONE 0.5MG TABLET PO SCH ×2 (10:09→18:37)
[2018-08-01] MEDS: AMLODIPINE 10MG TABLET PO SCH (10:10)
[2018-08-01] MEDS: OLANZAPINE 10MG TABLET PO SCH (10:10)
[2018-08-01] MEDS: HALOPERIDOL LACTATE 5MG/ML VIAL IM PRN (12:18)
[2018-08-01 12:54] LABS: BASOPHILS % 1.2 % (0.0-2.0); EOSINOPHILS % 5.6 % (0.0-5.0); HEMATOCRIT. 34.2 % (42.0-52.0); HEMOGLOBIN. 11.3 g/dL (14.0-18.0); LYMPHOCYTES % 18.4 % (20.0-50.0); MEAN CORPUSCULAR HEMOGLOBIN 29.3 pg (28.0-32.0); MEAN CORPUSCULAR VOLUME 88.6 fL (80.0-94.0); MEAN PLATELET VOLUME 9.7 fl (7.4-10.4); MONOCYTES % 5.7 % (2.0-8.0); NEUTROPHILS % 69.1 % (40.0-76.0); PLATELET 400 x1000/uL (130-400); RED BLOOD CELL COUNT 3.86 mill/uL (4.7-6.1); RED CELL DISTRIBUTION WIDTH 15.1 % (11.6-14.6)
[2018-08-01 13:16] LABS: CHLORIDE 104 mEq/L (98-107)
[2018-08-01 17:20] VITALS: BP 141/79
[2018-08-01 20:00] VITALS: BP 152/77
[2018-08-01] MEDS: ACETAMINOPHEN 325MG TABLET PO PRN (20:31)
[2018-08-02] MEDS: IPRATROPIUM/ALBUTEROL 0.5-3(2.5)MG/3ML NEB HHN SCH ×6 (00:50→21:17)
[2018-08-02 04:00] VITALS: BP 156/68
[2018-08-02] MEDS: SODIUM CHLORIDE 0.9% 1,000 ML IV SCH (04:45)
[2018-08-02] MEDS: SODIUM CHLORIDE 0.9% INJ 3ML FLUSH IVF SCH ×3 (06:00→22:00)
[2018-08-02] MEDS: BLOOD SUGAR DIAGNOSTIC STRIP TEST SCH ×4 (06:45→21:00)
[2018-08-02] MEDS: INSULIN LISPRO 100 UNITS/ML SUBCUT SCH ×4 (07:14→21:00)
[2018-08-02] MEDS: GLIPIZIDE 5MG XL TABLET PO SCH ×4 (07:15→17:59)
[2018-08-02 08:00] VITALS: BP 178/62
[2018-08-02] MEDS: FAMOTIDINE 20MG/2ML VIAL IV SCH ×2 (08:18→21:00)
[2018-08-02] MEDS: OLANZAPINE 10MG TABLET PO SCH (08:31)
[2018-08-02] MEDS: AMLODIPINE 10MG TABLET PO SCH (08:31)
[2018-08-02] MEDS: DIVALPROEX SODIUM 250MG DR TABLET PO SCH ×2 (08:31→21:25)
[2018-08-02] MEDS: RISPERIDONE 0.5MG TABLET PO SCH ×2 (08:32→18:00)
[2018-08-02 10:58] LABS: BASOPHILS % 1.2 % (0.0-2.0); EOSINOPHILS % 6.6 % (0.0-5.0); HEMATOCRIT. 33.4 % (42.0-52.0); HEMOGLOBIN. 11.2 g/dL (14.0-18.0); MEAN CORPUSCULAR HEMOGLOBIN 29.6 pg (28.0-32.0); MEAN CORPUSCULAR VOLUME 88.3 fL (80.0-94.0); MEAN PLATELET VOLUME 9.3 fl (7.4-10.4); MONOCYTES % 5.7 % (2.0-8.0); NEUTROPHILS % 73.5 % (40.0-76.0); PLATELET 370 x1000/uL (130-400); RED BLOOD CELL COUNT 3.78 mill/uL (4.7-6.1); RED CELL DISTRIBUTION WIDTH 15.1 % (11.6-14.6)
[2018-08-02 11:49] LABS: PHOSPHORUS 3.9 mg/dL (2.5-4.9)
[2018-08-02 12:00] VITALS: BP 122/75
[2018-08-02 16:00] VITALS: BP 139/69
[2018-08-02 20:00] VITALS: BP 129/69
[2018-08-02] MEDS: HALOPERIDOL LACTATE 5MG/ML VIAL IM PRN (21:26)
[2018-08-02] MEDS: ACETAMINOPHEN 325MG TABLET PO PRN (21:26)
[2018-08-03] MEDS: IPRATROPIUM/ALBUTEROL 0.5-3(2.5)MG/3ML NEB HHN SCH ×6 (01:00→21:10)
[2018-08-03] MEDS: HALOPERIDOL LACTATE 5MG/ML VIAL IM PRN ×2 (04:29→22:12)
[2018-08-03] MEDS: SODIUM CHLORIDE 0.9% INJ 3ML FLUSH IVF SCH ×3 (06:00→22:00)
[2018-08-03] MEDS: BLOOD SUGAR DIAGNOSTIC STRIP TEST SCH ×4 (06:45→21:00)
[2018-08-03] MEDS: GLIPIZIDE 5MG XL TABLET PO SCH ×2 (07:15→17:15)
[2018-08-03] MEDS: INSULIN LISPRO 100 UNITS/ML SUBCUT SCH ×4 (07:15→21:00)
[2018-08-03 08:00] VITALS: BP 140/71
[2018-08-03] MEDS ORDERED: GLUXL5 PO (08:08)
[2018-08-03] MEDS ORDERED: DIVA250T4 PO (08:08)
[2018-08-03] MEDS ORDERED: AMLO10TA80 PO (08:08)
[2018-08-03] MEDS ORDERED: OLAN10TA19 PO (08:08)
[2018-08-03] MEDS: RISPERIDONE 0.5MG TABLET PO SCH ×3 (09:00→21:49)
[2018-08-03] MEDS: FAMOTIDINE 20MG/2ML VIAL IV SCH ×2 (09:00→21:00)
[2018-08-03] MEDS: DIVALPROEX SODIUM 250MG DR TABLET PO SCH ×2 (09:00→21:50)
[2018-08-03] MEDS: SODIUM CHLORIDE 0.9% 1,000 ML IV SCH ×3 (09:00→17:19)
[2018-08-03] MEDS: AMLODIPINE 10MG TABLET PO SCH (09:00)
[2018-08-03] MEDS: OLANZAPINE 10MG TABLET PO SCH ×2 (09:00→21:50)
[2018-08-03 12:00] VITALS: BP 156/81
[2018-08-03 16:00] VITALS: BP 139/76
[2018-08-03 17:23] LABS: BASOPHILS % 0.9 % (0.0-2.0); HEMATOCRIT. 32.1 % (42.0-52.0); HEMOGLOBIN. 10.8 g/dL (14.0-18.0); LYMPHOCYTES % 14.9 % (20.0-50.0); MEAN CORPUSCULAR HEMOGLOBIN 29.6 pg (28.0-32.0); MEAN CORPUSCULAR VOLUME 87.6 fL (80.0-94.0); MEAN PLATELET VOLUME 9.6 fl (7.4-10.4); MONOCYTES % 6.5 % (2.0-8.0); NEUTROPHILS % 70.7 % (40.0-76.0); PLATELET 357 x1000/uL (130-400); RED BLOOD CELL COUNT 3.66 mill/uL (4.7-6.1); RED CELL DISTRIBUTION WIDTH 14.9 % (11.6-14.6)
[2018-08-03 17:38] LABS: CHLORIDE 105 mEq/L (98-107)
[2018-08-03 17:44] LABS: CREATINE KINASE 388 IU/L (39-308); PHOSPHORUS 3.3 mg/dL (2.5-4.9)
[2018-08-03 20:00] VITALS: BP_SYST 108; BP_SYST 152; BP_DIAS 60; BP_DIAS 69
[2018-08-04] VITALS: BP 144/70
[2018-08-04] MEDS: IPRATROPIUM/ALBUTEROL 0.5-3(2.5)MG/3ML NEB HHN SCH ×6 (00:25→22:08)
[2018-08-04] MEDS: SODIUM CHLORIDE 0.9% INJ 3ML FLUSH IVF SCH ×3 (06:00→22:00)
[2018-08-04 06:45] VITALS: BP 154/77
[2018-08-04] MEDS: SODIUM CHLORIDE 0.9% 1,000 ML IV SCH ×2 (06:45→19:15)
[2018-08-04] MEDS: BLOOD SUGAR DIAGNOSTIC STRIP TEST SCH ×4 (07:14→20:58)
[2018-08-04 08:00] VITALS: BP 154/77
[2018-08-04] MEDS: FAMOTIDINE 20MG/2ML VIAL IV SCH ×2 (09:00→20:33)
[2018-08-04] MEDS: DIVALPROEX SODIUM 250MG DR TABLET PO SCH ×2 (09:26→20:23)
[2018-08-04] MEDS: AMLODIPINE 10MG TABLET PO SCH (09:26)
[2018-08-04] MEDS: POTASSIUM CHLORIDE 20MEQ TABLET SR PO PRN (09:26)
[2018-08-04] MEDS: RISPERIDONE 0.5MG TABLET PO SCH ×2 (09:26→17:04)
[2018-08-04] MEDS: GLIPIZIDE 5MG XL TABLET PO SCH ×2 (09:27→17:04)
[2018-08-04] MEDS: INSULIN LISPRO 100 UNITS/ML SUBCUT SCH ×4 (09:32→20:55)
[2018-08-04] MEDS: OLANZAPINE 10MG TABLET PO SCH (09:34)
[2018-08-04 11:48] LABS: BASOPHILS % 0.9 % (0.0-2.0); EOSINOPHILS % 7.9 % (0.0-5.0); HEMATOCRIT. 33.4 % (42.0-52.0); HEMOGLOBIN. 11.4 g/dL (14.0-18.0); MEAN CORPUSCULAR HEMOGLOBIN 29.9 pg (28.0-32.0); MEAN CORPUSCULAR VOLUME 87.7 fL (80.0-94.0); MEAN PLATELET VOLUME 9.3 fl (7.4-10.4); NEUTROPHILS % 67.2 % (40.0-76.0); PLATELET 439 x1000/uL (130-400); RED CELL DISTRIBUTION WIDTH 15.7 % (11.6-14.6)
[2018-08-04 12:00] VITALS: BP 140/77
[2018-08-04] MEDS ORDERED: SODIUM POLYSTYRENE SULFONATE 15 G/60 ML BOT PO NR (13:00)
[2018-08-04 16:00] VITALS: BP 140/77
[2018-08-04 20:00] VITALS: BP 165/67
[2018-08-04] MEDS: HALOPERIDOL LACTATE 5MG/ML VIAL IM PRN (20:17)
[2018-08-04] MEDS: GUAIFENESIN 200MG/10ML SUGAR FREE UDC PO PRN (20:22)
[2018-08-04] MEDS: CLONIDINE 0.1MG TABLET PO PRN (20:22)
[2018-08-04] MEDS: ACETAMINOPHEN 325MG TABLET PO PRN (20:23)
[2018-08-04] MEDS ORDERED: LORAZEPAM 2MG/ML CPJ IV NR (21:45)
[2018-08-05] VITALS: BP 143/57
[2018-08-05] MEDS: IPRATROPIUM/ALBUTEROL 0.5-3(2.5)MG/3ML NEB HHN SCH ×6 (00:30→21:25)
[2018-08-05] MEDS: GUAIFENESIN 200MG/10ML SUGAR FREE UDC PO PRN (02:47)
[2018-08-05] MEDS: HALOPERIDOL LACTATE 5MG/ML VIAL IM PRN ×2 (02:47→20:19)
[2018-08-05 04:00] VITALS: BP 143/59
[2018-08-05] MEDS: SODIUM CHLORIDE 0.9% INJ 3ML FLUSH IVF SCH ×3 (06:00→21:59)
[2018-08-05 07:00] LABS: BASOPHILS % 1.3 % (0.0-2.0); EOSINOPHILS % 9.6 % (0.0-5.0); HEMATOCRIT. 28.7 % (42.0-52.0); HEMOGLOBIN. 9.6 g/dL (14.0-18.0); LYMPHOCYTES % 28.7 % (20.0-50.0); MEAN CORPUSCULAR HEMOGLOBIN 29.4 pg (28.0-32.0); MEAN PLATELET VOLUME 9.8 fl (7.4-10.4); NEUTROPHILS % 49.4 % (40.0-76.0); PLATELET 362 x1000/uL (130-400); RED BLOOD CELL COUNT 3.26 mill/uL (4.7-6.1); RED CELL DISTRIBUTION WIDTH 15.2 % (11.6-14.6)
[2018-08-05] MEDS: INSULIN LISPRO 100 UNITS/ML SUBCUT SCH ×4 (07:27→20:19)
[2018-08-05] MEDS: GLIPIZIDE 5MG XL TABLET PO SCH ×2 (07:29→17:15)
[2018-08-05] MEDS: BLOOD SUGAR DIAGNOSTIC STRIP TEST SCH ×4 (07:29→20:24)
[2018-08-05] MEDS: SODIUM CHLORIDE 0.9% 1,000 ML IV SCH ×2 (07:45→20:15)
[2018-08-05 08:00] VITALS: BP 138/94
[2018-08-05] MEDS: FAMOTIDINE 20MG/2ML VIAL IV SCH ×2 (09:00→20:24)
[2018-08-05] MEDS: DIVALPROEX SODIUM 250MG DR TABLET PO SCH ×2 (09:15→20:19)
[2018-08-05] MEDS: DOCUSATE SODIUM 100MG CAPSULE PO PRN (09:15)
[2018-08-05] MEDS: RISPERIDONE 0.5MG TABLET PO SCH ×2 (09:15→17:00)
[2018-08-05] MEDS: POTASSIUM CHLORIDE 20MEQ TABLET SR PO PRN (09:15)
[2018-08-05] MEDS: AMLODIPINE 10MG TABLET PO SCH (09:15)
[2018-08-05] MEDS: OLANZAPINE 10MG TABLET PO SCH (09:16)
[2018-08-05 12:00] VITALS: BP 133/68
[2018-08-05] MEDS ORDERED: SODIUM POLYSTYRENE SULFONATE 15 G/60 ML BOT PO SCH (13:30)
[2018-08-05 16:00] VITALS: BP 132/61
[2018-08-05 20:00] VITALS: BP 153/92
[2018-08-06] VITALS: BP 123/66
[2018-08-06 04:00] VITALS: BP 197/77
[2018-08-06] MEDS: IPRATROPIUM/ALBUTEROL 0.5-3(2.5)MG/3ML NEB HHN SCH ×5 (05:00→21:41)
[2018-08-06] MEDS: CLONIDINE 0.1MG TABLET PO PRN (05:09)
[2018-08-06] MEDS: SODIUM CHLORIDE 0.9% INJ 3ML FLUSH IVF SCH ×3 (06:00→21:31)
[2018-08-06] MEDS: BLOOD SUGAR DIAGNOSTIC STRIP TEST SCH ×4 (06:44→21:32)
[2018-08-06] MEDS: INSULIN LISPRO 100 UNITS/ML SUBCUT SCH ×4 (06:45→21:31)
[2018-08-06 06:52] LABS: BASOPHILS % 1.3 % (0.0-2.0); EOSINOPHILS % 8.1 % (0.0-5.0); HEMATOCRIT. 30.7 % (42.0-52.0); HEMOGLOBIN. 10.6 g/dL (14.0-18.0); LYMPHOCYTES % 24.5 % (20.0-50.0); MEAN CORPUSCULAR HEMOGLOBIN 30.4 pg (28.0-32.0); MEAN CORPUSCULAR VOLUME 87.8 fL (80.0-94.0); MEAN PLATELET VOLUME 9.6 fl (7.4-10.4); NEUTROPHILS % 55.1 % (40.0-76.0); PLATELET 410 x1000/uL (130-400); RED CELL DISTRIBUTION WIDTH 15.3 % (11.6-14.6)
[2018-08-06 07:08] LABS: PHOSPHORUS 3.9 mg/dL (2.5-4.9)
[2018-08-06 08:00] VITALS: BP 174/74
[2018-08-06] MEDS: FAMOTIDINE 20MG/2ML VIAL IV SCH ×2 (08:18→21:00)
[2018-08-06] MEDS: SODIUM CHLORIDE 0.9% 1,000 ML IV SCH (08:18)
[2018-08-06] MEDS: RISPERIDONE 0.5MG TABLET PO SCH ×2 (08:41→18:09)
[2018-08-06] MEDS: OLANZAPINE 10MG TABLET PO SCH (08:42)
[2018-08-06] MEDS: AMLODIPINE 10MG TABLET PO SCH (08:42)
[2018-08-06] MEDS: DIVALPROEX SODIUM 250MG DR TABLET PO SCH ×2 (08:42→21:18)
[2018-08-06] MEDS: GLIPIZIDE 5MG XL TABLET PO SCH ×2 (08:47→21:18)
[2018-08-06 12:00] VITALS: BP 151/82
[2018-08-06] MEDS ORDERED: MAGNESIUM 2 G PREMIX 50 ML IV ONE (12:00)
[2018-08-06] MEDS ORDERED: MAGNESIUM SULFATE 2 GM in DEXTROSE 5% WATER 46 ML IV SCH (13:00)
[2018-08-06] MEDS: HALOPERIDOL LACTATE 5MG/ML VIAL IM PRN ×2 (13:52→21:18)
[2018-08-06 20:00] VITALS: BP 160/92
[2018-08-06] MEDS: CLONAZEPAM 1MG TABLET PO SCH (21:18)
[2018-08-07] MEDS: IPRATROPIUM/ALBUTEROL 0.5-3(2.5)MG/3ML NEB HHN SCH ×6 (02:45→21:50)
[2018-08-07 04:00] VITALS: BP 161/91
[2018-08-07] MEDS: SODIUM CHLORIDE 0.9% INJ 3ML FLUSH IVF SCH ×3 (05:01→22:00)
[2018-08-07] MEDS: BLOOD SUGAR DIAGNOSTIC STRIP TEST SCH ×4 (07:22→21:57)
[2018-08-07 08:00] VITALS: BP 154/83
[2018-08-07] MEDS: RISPERIDONE 0.5MG TABLET PO SCH ×2 (08:44→17:51)
[2018-08-07] MEDS: DIVALPROEX SODIUM 250MG DR TABLET PO SCH ×2 (08:45→21:45)
[2018-08-07] MEDS: OLANZAPINE 10MG TABLET PO SCH (08:46)
[2018-08-07] MEDS: GLIPIZIDE 5MG XL TABLET PO SCH ×2 (08:46→18:17)
[2018-08-07] MEDS: INSULIN LISPRO 100 UNITS/ML SUBCUT SCH ×4 (08:50→22:14)
[2018-08-07] MEDS: CLONIDINE 0.1MG TABLET PO SCH ×2 (08:51→21:48)
[2018-08-07] MEDS: AMLODIPINE 10MG TABLET PO SCH (08:52)
[2018-08-07] MEDS: FAMOTIDINE 20MG/2ML VIAL IV SCH ×2 (08:52→21:00)
[2018-08-07 12:00] VITALS: BP 165/50
[2018-08-07 15:39] LABS: BASOPHILS % 1.1 % (0.0-2.0); EOSINOPHILS % 7.3 % (0.0-5.0); HEMATOCRIT. 29.9 % (42.0-52.0); HEMOGLOBIN. 10.2 g/dL (14.0-18.0); LYMPHOCYTES % 19.7 % (20.0-50.0); MEAN CORPUSCULAR HEMOGLOBIN 30.1 pg (28.0-32.0); MEAN CORPUSCULAR VOLUME 87.9 fL (80.0-94.0); MEAN PLATELET VOLUME 9.4 fl (7.4-10.4); MONOCYTES % 10.7 % (2.0-8.0); NEUTROPHILS % 61.2 % (40.0-76.0); PLATELET 377 x1000/uL (130-400); RED CELL DISTRIBUTION WIDTH 15.3 % (11.6-14.6)
[2018-08-07 16:00] VITALS: BP 145/82
[2018-08-07] MEDS ORDERED: SODIUM POLYSTYRENE SULFONATE 15 G/60 ML BOT PO NR (16:30)
[2018-08-07] MEDS: LORAZEPAM 2MG/ML CPJ IM PRN ×2 (16:43→21:48)
[2018-08-07] MEDS: SODIUM POLYSTYRENE SULFONATE 15 G/60 ML BOT PO SCH (18:17)
[2018-08-07 20:00] VITALS: BP 161/71
[2018-08-07] MEDS: CLONAZEPAM 1MG TABLET PO SCH (21:46)
[2018-08-07] MEDS: HALOPERIDOL LACTATE 5MG/ML VIAL IM PRN (21:52)
[2018-08-08] VITALS: BP 165/85
[2018-08-08] MEDS: SODIUM POLYSTYRENE SULFONATE 15 G/60 ML BOT PO SCH (00:01)
[2018-08-08] MEDS: IPRATROPIUM/ALBUTEROL 0.5-3(2.5)MG/3ML NEB HHN SCH ×6 (03:44→20:45)
[2018-08-08 04:00] VITALS: BP 149/79
[2018-08-08] MEDS: LORAZEPAM 2MG/ML CPJ IM PRN ×4 (04:08→19:24)
[2018-08-08 07:08] LABS: BASOPHILS % 1.3 % (0.0-2.0); EOSINOPHILS % 8.8 % (0.0-5.0); HEMATOCRIT. 31.1 % (42.0-52.0); HEMOGLOBIN. 10.7 g/dL (14.0-18.0); LYMPHOCYTES % 26.2 % (20.0-50.0); MEAN CORPUSCULAR HEMOGLOBIN 30.1 pg (28.0-32.0); MEAN CORPUSCULAR VOLUME 87.9 fL (80.0-94.0); MEAN PLATELET VOLUME 8.8 fl (7.4-10.4); MONOCYTES % 14.1 % (2.0-8.0); NEUTROPHILS % 49.6 % (40.0-76.0); PLATELET 334 x1000/uL (130-400); RED BLOOD CELL COUNT 3.54 mill/uL (4.7-6.1); RED CELL DISTRIBUTION WIDTH 15.8 % (11.6-14.6)
[2018-08-08] MEDS: HALOPERIDOL LACTATE 5MG/ML VIAL IM PRN ×2 (07:28→16:14)
[2018-08-08] MEDS: SODIUM CHLORIDE 0.9% INJ 3ML FLUSH IVF SCH ×3 (07:29→22:00)
[2018-08-08] MEDS: BLOOD SUGAR DIAGNOSTIC STRIP TEST SCH ×4 (07:29→21:21)
[2018-08-08] MEDS: GLIPIZIDE 5MG XL TABLET PO SCH ×2 (07:50→16:50)
[2018-08-08 07:54] LABS: PHOSPHORUS 4.3 mg/dL (2.5-4.9)
[2018-08-08 08:00] VITALS: BP 145/82
[2018-08-08] MEDS ORDERED: MAGNESIUM 1 G PREMIX 100 ML IV SCH (09:00)
[2018-08-08] MEDS: DIVALPROEX SODIUM 250MG DR TABLET PO SCH ×3 (09:00→22:21)
[2018-08-08] MEDS: INSULIN LISPRO 100 UNITS/ML SUBCUT SCH ×4 (09:26→21:32)
[2018-08-08] MEDS: OLANZAPINE 10MG TABLET PO SCH (09:28)
[2018-08-08] MEDS: AMLODIPINE 10MG TABLET PO SCH (09:28)
[2018-08-08] MEDS: CLONIDINE 0.1MG TABLET PO SCH ×2 (09:28→21:17)
[2018-08-08] MEDS: RISPERIDONE 0.5MG TABLET PO SCH ×2 (09:28→17:05)
[2018-08-08] MEDS: FAMOTIDINE 20MG/2ML VIAL IV SCH ×2 (09:29→20:18)
[2018-08-08] MEDS ORDERED: SODIUM POLYSTYRENE SULFONATE 15 G/60 ML BOT PO SCH (10:40)
[2018-08-08 12:00] VITALS: BP 129/80
[2018-08-08] MEDS ORDERED: MAGNESIUM GLUCONATE 500MG TABLET PO SCH (14:45)
[2018-08-08] MEDS: MAGNESIUM OXIDE 400MG TABLET PO SCH (16:45)
[2018-08-08 20:00] VITALS: BP 150/65
[2018-08-08] MEDS: CLONAZEPAM 1MG TABLET PO SCH (21:16)
[2018-08-08] MEDS ORDERED: DIPHENHYDRAMINE 50MG CAPSULE PO NR (22:00)
[2018-08-09] MEDS: HALOPERIDOL LACTATE 5MG/ML VIAL IM PRN ×2 (00:53→12:36)
[2018-08-09] MEDS: LORAZEPAM 2MG/ML CPJ IM PRN ×2 (04:26→08:34)
[2018-08-09] MEDS: SODIUM CHLORIDE 0.9% INJ 3ML FLUSH IVF SCH ×2 (06:00→14:00)
[2018-08-09] MEDS: BLOOD SUGAR DIAGNOSTIC STRIP TEST SCH ×2 (06:49→12:34)
[2018-08-09] MEDS: INSULIN LISPRO 100 UNITS/ML SUBCUT SCH ×2 (08:09→14:15)
[2018-08-09] MEDS: RISPERIDONE 0.5MG TABLET PO SCH (08:23)
[2018-08-09] MEDS: OLANZAPINE 10MG TABLET PO SCH (08:23)
[2018-08-09] MEDS: DIVALPROEX SODIUM 250MG DR TABLET PO SCH (08:23)
[2018-08-09] MEDS: MAGNESIUM OXIDE 400MG TABLET PO SCH (08:23)
[2018-08-09] MEDS: AMLODIPINE 10MG TABLET PO SCH (08:23)
[2018-08-09] MEDS: CLONIDINE 0.1MG TABLET PO SCH (08:23)
[2018-08-09] MEDS: FAMOTIDINE 20MG/2ML VIAL IV SCH (08:24)
[2018-08-09] MEDS: GLIPIZIDE 5MG XL TABLET PO SCH (08:24)
[2018-08-09 10:19] LABS: BASOPHILS % 1.1 % (0.0-2.0); EOSINOPHILS % 5.4 % (0.0-5.0); HEMATOCRIT. 29.6 % (42.0-52.0); HEMOGLOBIN. 10.2 g/dL (14.0-18.0); LYMPHOCYTES % 16.7 % (20.0-50.0); MEAN CORPUSCULAR HEMOGLOBIN 30.5 pg (28.0-32.0); MEAN CORPUSCULAR VOLUME 88.7 fL (80.0-94.0); MEAN PLATELET VOLUME 9.2 fl (7.4-10.4); MONOCYTES % 8.3 % (2.0-8.0); NEUTROPHILS % 68.5 % (40.0-76.0); PLATELET 336 x1000/uL (130-400); RED BLOOD CELL COUNT 3.34 mill/uL (4.7-6.1); RED CELL DISTRIBUTION WIDTH 15.3 % (11.6-14.6)
[2018-08-09 10:40] LABS: PHOSPHORUS 4.2 mg/dL (2.5-4.9)
[2018-08-09 14:43] VITALS: BP 150/65
[2018-08-09] MEDS ORDERED: GLIPIZIDE 5MG XL TABLET PO SCH (17:50)
== END 2018-08-09 16:20 | DRG 870 ==
LOC: ER 09:42 → MICUSO 14:09 → ENRESERV 14:19 → 5WST 07-24 23:55 → 6EST 08-06 16:23
PROVIDERS: ADMIT Family Medicine; ATTEND Family Medicine
PROC: 5A1955Z Respiratory Ventilation, Greater than 96 Consecutive Hours (ICD-10-PCS; principal; 2018-07-19)
PROC: 0BH17EZ Insertion of Endotracheal Airway into Trachea, Via Natural or Artificial Opening (ICD-10-PCS; 2018-07-19)
PROC: 02HV33Z Insertion of Infusion Device into Superior Vena Cava, Percutaneous Approach (ICD-10-PCS; 2018-07-20)
PROC: B548ZZA Ultrasonography of Superior Vena Cava, Guidance (ICD-10-PCS; 2018-07-20)
PROC: 4A00X4Z Measurement of Central Nervous Electrical Activity, External Approach (ICD-10-PCS; 2018-07-26)
DX: A41.81 Sepsis due to Enterococcus (principal); J69.0 Pneumonitis due to inhalation of food and vomit; G93.41 Metabolic encephalopathy; E43 Unspecified severe protein-calorie malnutrition; J96.01 Acute respiratory failure with hypoxia; N17.9 Acute kidney failure, unspecified; I13.0 Hypertensive heart and chronic kidney disease with heart failure and stage 1 through stage 4 chronic kidney disease, or unspecified chronic kidney disease; R65.20 Severe sepsis without septic shock; E11.22 Type 2 diabetes mellitus with diabetic chronic kidney disease; E11.51 Type 2 diabetes mellitus with diabetic peripheral angiopathy without gangrene; E11.622 Type 2 diabetes mellitus with other skin ulcer; L97.519 Non-pressure chronic ulcer of other part of right foot with unspecified severity; D63.8 Anemia in other chronic diseases classified elsewhere; E11.621 Type 2 diabetes mellitus with foot ulcer; E87.5 Hyperkalemia; N18.3 Chronic kidney disease, stage 3 (moderate); G31.9 Degenerative disease of nervous system, unspecified; G89.4 Chronic pain syndrome; I50.9 Heart failure, unspecified; J45.909 Unspecified asthma, uncomplicated; F13.929 Sedative, hypnotic or anxiolytic use, unspecified with intoxication, unspecified; F15.929 Other stimulant use, unspecified with intoxication, unspecified; J44.9 Chronic obstructive pulmonary disease, unspecified; T43.625A Adverse effect of amphetamines, initial encounter; R04.0 Epistaxis; T50.2X5A Adverse effect of carbonic-anhydrase inhibitors, benzothiadiazides and other diuretics, initial encounter; Y92.89 Other specified places as the place of occurrence of the external cause; Z78.1 Physical restraint status; Z99.2 Dependence on renal dialysis; Z89.412 Acquired absence of left great toe; Z82.49 Family history of ischemic heart disease and other diseases of the circulatory system; Z87.891 Personal history of nicotine dependence; Z88.5 Allergy status to narcotic agent; Z79.899 Other long term (current) drug therapy; Z68.36 Body mass index [BMI] 36.0-36.9, adult
CPT/HCPCS: 31500; 36415; 36569; 36600; 70551; 71045; 76770; 76937; 80048; 80061; 80202; 80305; 82375; 82550; 82553; 82607; 82805; 82962; 83036; 83540; 83550; 83605; 83735; 84100; 84443; 84478; 84484; 86850; 86900; 87077; 87186; 87389; 92610; 93005; 93306; 94002; 94003; 94640; 94667; 96361; 96365; 96366; 96375; 97162; 97164; 97166; 97535; 99291; A6261; C1725; C9113; G0482; J0330; J0456; J0696; J1630; J1642; J1650; J1815; J1940; J2060; J2270; J2310; J2543; J2704; J3010; J3370; J3411; J3475; J3490; J7030; J7040; J7050; J7060; J7620; Q0163

== ENCOUNTER 2018-08-09 19:44 | Emergency (ER) | payer MEDICARE ==
[~2018-08-09] VITALS: Ht 167.6 cm; Wt 82.0 kg
[~2018-08-09 19:44] MED LIST: ACET-2178 PO; ACET-2708 PO; AMLO10TA80 PO; ASPI-1158 PO; CARV6.2548 PO; CHOL100062 PO; DIAZ10TA4 PO; DIPH50CA4 PO; DIVA250T4 PO; EPOE200014 IJ; GLUXL5 PO; HYDR-4001 PO; LISI40TA4 PO; MINO2.5T2 PO; NIFE30TA83 PO; OLAN10TA19 PO; OLAN5TAB26 PO; OXYC30TA89 PO; PANT40TA4 PO; REN800 PO
[2018-08-09 21:48] LABS: BASOPHILS % 1.1 % (0.0-2.0); EOSINOPHILS % 7.9 % (0.0-5.0); HEMATOCRIT. 30.4 % (42.0-52.0); HEMOGLOBIN. 10.4 g/dL (14.0-18.0); LYMPHOCYTES % 25.4 % (20.0-50.0); MEAN CORPUSCULAR HEMOGLOBIN 30.1 pg (28.0-32.0); MEAN CORPUSCULAR VOLUME 87.6 fL (80.0-94.0); MEAN PLATELET VOLUME 8.8 fl (7.4-10.4); MONOCYTES % 11.8 % (2.0-8.0); NEUTROPHILS % 53.8 % (40.0-76.0); PLATELET 385 x1000/uL (130-400); RED BLOOD CELL COUNT 3.48 mill/uL (4.7-6.1)
[2018-08-09 21:51] LABS: CHLORIDE 109 mEq/L (98-107); PROTHROMBIN TIME 9.9 sec (9.1-11.1)
[2018-08-09 21:56] LABS: ETHANOL BLOOD < 10 mg/dL
[2018-08-09 22:08] LABS: CREATINE KINASE 367 IU/L (39-308)
[2018-08-09 22:09] LABS: CLARITY URINE CLEAR (CLEAR); COLOR URINE YELLOW (YELLOW); KETONES URINE NEGATIVE (NEGATIVE); LEUKOCYTE ESTERASE URINE NEGATIVE (NEGATIVE); NITRITE URINE NEGATIVE (NEGATIVE); OCCULT BLOOD URINE 1+ (NEGATIVE); PROTEIN URINE 4+ (NEGATIVE); SPECIFIC GRAVITY URINE 1.014 (1.005-1.030); UROBILINOGEN URINE 0.2 E.U./dL (0.2-1.0)
[2018-08-09 22:22] LABS: *AMPHETAMINES SCREEN URINE NEGATIVE (NEGATIVE); *BARBITURATES SCREEN URINE NEGATIVE (NEGATIVE); *BENZODIAZEPINES SCREEN URINE NEGATIVE (NEGATIVE); *COCAINE SCREEN URINE NEGATIVE (NEGATIVE)
[2018-08-09 22:23] LABS: CANNABINOID URINE SCREEN NEGATIVE (NEGATIVE); METHADONE URINE SCREEN NEGATIVE (NEGATIVE); OPIATES URINE SCREEN NEGATIVE (NEGATIVE); PHENCYCLIDINE URINE SCREEN NEGATIVE (NEGATIVE)
[2018-08-10] MEDS ORDERED: LORAZEPAM 1MG TABLET PO ONE ×2 (01:15→04:15)
[2018-08-10] MEDS ORDERED: OLANZAPINE 5MG TABLET ODT PO ONE (01:15)
[2018-08-10] MEDS ORDERED: HALOPERIDOL 2MG TABLET PO ONE (04:15)
[2018-08-10] MEDS ORDERED: DIPHENHYDRAMINE 25MG CAPSULE PO ONE (04:15)
[2018-08-10] MEDS ORDERED: OLANZAPINE 10 MG/VIAL IM ONE (08:00)
[2018-08-10] MEDS ORDERED: LORAZEPAM 2MG/ML CPJ IM ONE (08:00)
[2018-08-10 14:52] VITALS: BP 142/89
== END 2018-08-10 14:52 | disposition home or self-care (01) ==
LOC: ER 19:44
DX: F33.0 Major depressive disorder, recurrent, mild (principal); R53.1 Weakness; Z88.6 Allergy status to analgesic agent; Z88.5 Allergy status to narcotic agent; Z79.899 Other long term (current) drug therapy
CPT/HCPCS: 36415; 80053; 80305; 80307; 80329; 81003; 82550; 84443; 85025; 85610; 93005; 99285; G0482; J2060; J3490; J7030; Q0163